=== PATIENT | female | born 2000 | race Caucasian/White ===

== ENCOUNTER 2020-08-15 10:38 | Emergency (ER) | payer OTHER ==
[2020-08-15 10:45] VITALS: BP 151/99; PULSE 105; TEMP 98.4; BMI 20.1
== END 2020-08-15 12:41 | disposition home or self-care (01) ==
LOC: JER 10:38
DX: S09.90XA Unspecified injury of head, initial encounter (principal)
CPT/HCPCS: 99281-25

== ENCOUNTER 2020-12-21 19:07 | Emergency (ER) | payer OTHER ==
[2020-12-21 19:11] VITALS: BP 120/79; PULSE 107; TEMP 97; BMI 19.3
[2020-12-21 21:02] LABS: BASO % 0.3 % (0-2.0); EOS % 0.4 % (0-4.5); HEMATOCRIT 38.1 % (32.4-45.2); HEMOGLOBIN 12.9 GM/dL (10.7-15.3); LYMPH % 22.4 % (8-40); MCH 30.2 pg (25.7-33.7); MCHC 33.9 g/dl (32.0-36.0); MEAN CELL VOLUME 89.1 fl (80-96); MEAN PLT VOLUME 7.9 fl (7.5-11.1); MONO % 10.7 % (3.8-10.2); NEUT % 66.2 % (42.8-82.8); PLATELET COUNT 236 10^3/uL (134-434); RBC 4.27 M/mm3 (3.60-5.2); RDW 15.8 % (11.6-15.6); WHITE BLOOD COUNT 7.1 K/mm3 (4.0-10.0)
[2020-12-21 21:14] LABS: EPI CELLS 6 /uL (0-25.1); HYALINE CASTS 1 /uL (0-3.1); PH,URINE 6.5 (5.0-8.0); URINE APPEARANCE CLEAR; URINE BACTERIA 74 /uL (0-1359); URINE BILIRUBIN NEGATIVE (NEGATIVE); URINE COLOR YELLOW; URINE GLUCOSE (UA) NEGATIVE (NEGATIVE); URINE KETONE NEGATIVE (NEGATIVE); URINE LEUK ESTERASE NEGATIVE (NEGATIVE); URINE NITRITE NEGATIVE (NEGATIVE); URINE PROTEIN NEGATIVE (NEGATIVE); URINE RBC 5 /uL (0-23.9); URINE UROBILINOGEN 0.2 mg/dL (0.2-1.0); URINE WBC 6 /uL (0-25.8)
[2020-12-21 21:21] LABS: CHLORIDE 107 mmol/L (98-107); SODIUM 140 mmol/L (136-145)
[2020-12-21 21:24] LABS: ALBUMIN 4.1 g/dl (3.4-5.0); ANION GAP 9 MMOL/L (8-16); BLOOD UREA NITROGEN 7.5 mg/dL (7-18); CALCIUM 8.7 mg/dL (8.5-10.1); CO2 24 mmol/L (21-32); GLUCOSE,RANDOM 88 mg/dL (74-106)
[2020-12-21 21:27] LABS: CREATININE 0.6 mg/dL (0.55-1.3); SGOT/AST 9 U/L (15-37); SGPT/ALT 15 U/L (13-61)
[2020-12-21 21:29] LABS: BILIRUBIN,TOTAL 0.2 mg/dL (0.2-1); TOT PROT 7.4 g/dl (6.4-8.2)
[2020-12-21 21:30] LABS: ALK PHOS 76 U/L (45-117)
== END 2020-12-21 23:32 | disposition home or self-care (01) ==
LOC: JER 19:07
DX: O20.0 Threatened abortion (principal)
CPT/HCPCS: 36415; 76817-TC; 80053; 81003; 84702; 85025; 86850; 86900; 86901; 87086; 99284-25

== ENCOUNTER 2023-12-11 15:34 | Emergency (ER) | payer OTHER ==
[2023-12-11 15:55] VITALS: BP 126/78; PULSE 80; RESP 18; TEMP 99; BMI 22.3
[2023-12-11 17:29] LABS: BASO % 0.3 % (0-2.0); EOS % 0.5 % (0-4.5); HEMATOCRIT 38.8 % (32.4-45.2); HEMOGLOBIN 12.8 GM/dL (10.7-15.3); LYMPH % 23.8 % (8-40); MCHC 33.1 g/dl (32.0-36.0); MEAN CELL VOLUME 87.8 fl (80-96); MEAN PLT VOLUME 7.8 fl (7.5-11.1); MONO % 7.8 % (3.8-10.2); NEUT % 67.6 % (42.8-82.8); PLATELET COUNT 256 10^3/uL (134-434); RBC 4.42 M/mm3 (3.60-5.2); RDW 15.3 % (11.6-15.6)
[2023-12-11 17:39] LABS: POTASSIUM 3.8 mmol/L (3.5-5.1)
[2023-12-11 17:43] LABS: ALBUMIN 4.1 g/dl (3.4-5.0); BLOOD UREA NITROGEN 12.3 mg/dL (7-18)
[2023-12-11 17:47] LABS: CREATININE 0.6 mg/dL (0.55-1.3)
[2023-12-11 17:48] LABS: BILIRUBIN,TOTAL 0.4 mg/dL (0.2-1); TOT PROT 7.3 g/dl (6.4-8.2)
[2023-12-12 00:25] LABS: HIV INTERPRETATION NEGATIVE (NEGATIVE)
== END 2023-12-11 17:16 | disposition home or self-care (01) ==
LOC: JERFT 15:34 → JER 15:34 → JERFT 17:16
DX: Z77.21 Contact with and (suspected) exposure to potentially hazardous body fluids (principal)
CPT/HCPCS: 36415; 80053; 85025; 86803; 87389; 99283-25